=== PATIENT | female | born 1995 | race American Indian/Alaskan Native ===

== ENCOUNTER 2017-04-16 23:18 | Inpatient (IN) | payer MEDICAID ==
[2017-04-17] MEDS ORDERED: Sodium Chloride 0.9% 10 ML Syringe FLUSH PRN ×2 (00:20→08:12)
[2017-04-17] MEDS ORDERED: Ondansetron 4 MG/2 ML SDV IV PRN (00:20)
[2017-04-17] MEDS ORDERED: Penicillin G Potassium 5 MILLUNITS in Sodium Chloride 0.9% 100 ML IV ONE (00:20)
[2017-04-17] MEDS ORDERED: Lidocaine 1% 30 ML SDV INJECT PRN (00:20)
[2017-04-17] MEDS ORDERED: Methylergonovine 0.2 MG/1 ML Amp IM PRN (00:20)
[2017-04-17] MEDS ORDERED: Lactated Ringers 500 ML IV ONE (00:20)
[2017-04-17] MEDS ORDERED: Misoprostol 400 MCG (4 X 100 MCG TAB) RECTAL PRN (00:20)
[2017-04-17] MEDS ORDERED: Carboprost Tromethamine 250 MCG/1 ML Amp IM PRN (00:20)
[2017-04-17] MEDS ORDERED: Oxytocin/Normal Saline 30 UNIT/500 ML BAG IV SCH (00:30)
[2017-04-17] MEDS: Lactated Ringers 1,000 ML IV SCH ×2 (01:00→03:32)
[2017-04-17] MEDS ORDERED: fentaNYL 100 MCG/2 ML SDV ONE (03:23)
--- NOTE | 2017-04-17 03:56 | PCM.SN ---
- Free Text/Narrative Note: Called to provide labor pain relief for this patient via intrathecal. After chart reviewed, consent obtained, and monitors on, proceeded. With patient in sitting position, sterile prep/drape. Skin wheal at L3-4 with 1% Lidocaine, then LPX1 at L3-4 with 25g pencan spinal needle. Positive clear, free flowing CSF, no heme, no paresthesia. Then 20mcg sufenta, 30mcg fentanyl, 6mg mpf HB spinal marcaine, 0.4ml preservative free normal saline, plus epi wash given intrathecally. Maternal SBP and FHT's remained stable after. Block to around T4, and patient reported pain relief from subsequent contractions.
[2017-04-17] MEDS ORDERED: Penicillin G Potassium 3 MILLUNITS in Sodium Chloride 0.9% 100 ML IV SCH (04:00)
[2017-04-17] MEDS: Penicillin G Potassium 3 MILLUNITS in Sodium Chloride 0.9% 100 ML IV SCH ×2 (05:06→11:28)
[2017-04-17] MEDS ORDERED: Simethicone 80 MG Tab.Chew PO PRN (08:12)
[2017-04-17] MEDS ORDERED: Zolpidem 5 MG Tab PO PRN (08:12)
[2017-04-17] MEDS ORDERED: Oxytocin 10 Units/1 ML SDV IM PRN (08:12)
[2017-04-17] MEDS ORDERED: Benzocaine/Menthol 20%-0.5% Spray 56 GM Canister TOP PRN (08:12)
[2017-04-17] MEDS: Ibuprofen 800 MG Tab PO PRN ×2 (09:34→22:30)
[2017-04-17] MEDS: Docusate Sodium 100 MG Cap PO PRN ×2 (09:34→22:30)
[2017-04-17] MEDS: Prenatal Multivitamin with Calcium/Folic Acid/Iron Tab PO SCH (09:35)
[2017-04-17] MEDS: Acetaminophen 325 MG Tab PO PRN (16:15)
[2017-04-18] MEDS: Acetaminophen 325 MG Tab PO PRN (06:38)
[2017-04-18] MEDS: Ibuprofen 800 MG Tab PO PRN (06:39)
--- NOTE | 2017-04-18 07:33 | PCM.POSTAN ---
POST ANESTHESIA ASSESSMENT - MENTAL STATUS Mental Status: Alert - VITAL SIGNS Pulse Rate: 87 SaO2: 100 Resp Rate: 18 Blood Pressure: 110/57 Temperature: 36.2 C - RESPIRATORY Respiratory Status: Respiratory Rate WNL - CARDIOVASCULAR CV Status: Pulse Rate WNL - GASTROINTESTINAL GI Status: No Symptoms - POST OP HYDRATION Hydration Status: Adequate & Stable - OBSERVATIONS Free Text/Narrative:: pt without c/o. No PDPH, no PONV, no paresthesias, no c/o pain. No post anesthesia complications noted.
[2017-04-18 08:49] VITALS: BP 81/41
[2017-04-18] MEDS: Prenatal Multivitamin with Calcium/Folic Acid/Iron Tab PO SCH (08:53)
[2017-04-18] MEDS: Docusate Sodium 100 MG Cap PO PRN (08:53)
--- NOTE | 2017-04-18 09:08 | HP ---
PATIENT IDENTIFICATION: Rosa Mcfadden is a 21-year-old G2, P1-0-0-1 intrauterine at 39 and 4/7 weeks confirmed with 16 and 1/7 week ultrasound, who presents with vaginal leaking and contractions. HISTORY OF PRESENT ILLNESS: The patient states that she had vaginal leaking at approximately 10:15 p.m. on 04/16/2017, date of admission, where she got up and noticed vaginal leaking, described as clear in nature, enough to soak through her shorts and leave a softball sized wet morgan on her shorts. She subsequently changed her pants and then had another episode of leaking about the size of a golf ball described as clear in nature with some minimal continued leaking as she presented to the hospital. Associated with these has been some contractions felt on the right side of her abdomen and lower abdomen, radiating to her back, seeming to increase in frequency and intensity. To put this in context, she is GBS positive as well as had a history of a 5-hour labor stating she came in at 8 and had her baby at 1 with her last delivery. Records were called for and reviewed as below and supplemented by patient's history. ANTEPARTUM LABS: ABO blood type A positive, negative antibody. Rubella immune. RPR nonreactive. Negative hep C, HIV, GC, and chlamydia with negative hepatitis B surface antigen. UDS was negative. Wet prep was negative. GBS was positive on 03/22/2017, with hemoglobin being 10.5 that day. OB HISTORY: 12/29/2013, at 40 and 1/7 weeks, delivered a male, spontaneous vaginal delivery, weighing 3714 g, in [place]. ALLERGIES: None. MEDICATIONS: 1. vitamins. 2. Iron. PAST MEDICAL/PAST SURGICAL HISTORY: Remarkable for wisdom teeth extraction. SOCIAL HISTORY: Former smoker. Stopped when she was positive for and notes marijuana during this time up until her , test was positive. No alcohol or other drug use. She just moved to [place] with her significant other, Franki Gutiérrez, and they are currently living in her mother's home. Franki has a 3-year-old son, who does not usually live with him, and Rosa also has a 3-year-old son named Rigoberto, both are currently employed. They have been together since 2014. They are expecting a girl. FAMILY HISTORY: Mother has thyroid disease. Negative family history of anesthesia, bleeding problems, or defects. REVIEW OF SYSTEMS: Otherwise reviewed and felt to be noncontributory. OBJECTIVE: Vital Signs: Blood pressure was 137/77, heart rate 107, temperature 99.2, respiratory rate is between 12 and 20 and nonlabored. General Appearance: Female, appears her stated age, acting appropriate for age. Breathing through some of her contractions, answering questions appropriately in between. HEENT: Head is atraumatic. EOMs intact. PERRLA. No scleral icterus. No obvious otorrhea or rhinorrhea. Mucous membranes moist. Neck: No obvious tenderness. Lungs: Clear to auscultation bilaterally. No increased work of breathing. Heart: S1, S2. Regular rate rhythm. Abdomen: Gravid, John's indeterminate, nontender, and nondistended. Bowel sounds positive. No other organomegaly, pulsatile masses, or obvious hernias. No rebound, rigidity, or guarding. Monitors applied. Genitourinary: Normal external female genitalia. Normal position and presentation of urethra. Sterile speculum exam done, equivocal pooling. Nitrazine is negative. Ferning is pending. Vaginal exam thereafter reveals her to be 4+ cm, 75% to 85% effaced, 0 station, vertex suspected. Previous vaginal exam by nurse was 3 cm within an hour prior to this. heart tones have been in the 150s range, baseline felt to be reactive and reassuring. Tocometer now reveals contractions every 2 to 4 minutes. Pending is a CBC. ASSESSMENT: 1. Intrauterine at 39 and 4/7 weeks, confirmed with 16 and 1/7 week ultrasound. 2. Active labor with contractions with cervical change. This has been over the last hour and records do reveal that the last time she was checked in the clinic on 04/12/2017, she was 1.5 cm and very high. 3. Vaginal leaking, questionable spontaneous rupture of membranes, but at this point in time as an active labor with history of fast labors and being GBS positive status, the patient will be admitted regardless. We will start penicillin immediately. 4. Group B Streptococcus positive. We will start penicillin immediately. 5. History of fast labors stating the last one was 5 hours. 6. G2, P1-0-0-1. PLAN: The patient will be admitted. We will start penicillin immediately. Follow clinically and closely. Await ferning test. May need further interventions, but most likely we will follow clinically and closely at this point in time. The patient understands and agrees with the above treatment and plan. [facility] /[id number]
--- NOTE | 2017-04-18 09:38 | PN ---
DATE: 04/17/2017 SUBJECTIVE: The patient is comfortable, status post intrathecal. OBJECTIVE: heart tones have been in the 130s to 140s, occasional early decelerations what it appears to be. Tocometer reveals contractions every couple of minutes. Vaginal exam reveals her to be 6+ cm, 100% effaced, 0 to +1 station, vertex suspected. Artificial rupture of membranes done after discussion with the patient yielding copious amounts of clear fluid. ASSESSMENT AND PLAN: Intrauterine at 39 and 5/7 weeks confirmed by 16- /7-week ultrasound, admitted with active labor with contractions with cervical change, initially with vaginal leaking with negative ferning and group B Streptococcus positive status with 2 doses of penicillin now with protracted disorder of dilation, status post intrathecal and just had artificial rupture of membranes. We will continue to follow clinically and closely at this point in time. The patient's questions were answered. She understands and agrees with the above treatment and plan. We will follow clinically and closely. [facility] /[id number]
--- NOTE | 2017-04-18 09:59 | DEL ---
DATE: 04/17/2017 PREOPERATIVE DIAGNOSES: 1. Intrauterine at 39 and 5/7 weeks confirmed with 16 and 1/7 week ultrasound. 2. Active labor with contractions and cervical change upon admit. 3. Vaginal leaking. 4. Group B Streptococcus positive (penicillin given). 5. History of fast labor in the past, approximately 5 hours. 6. Maternal anemia with a hemoglobin of 10.2 upon admission. 7. Protracted disorder dilation status post artificial rupture of membranes and Pitocin augmentation. POSTOPERATIVE DIAGNOSES: 1. Intrauterine at 39 and 5/7 weeks confirmed with 16 and 1/7 week ultrasound-delivered. 2. Active labor with contractions and cervical change upon admit. 3. Vaginal leaking. 4. Group B Streptococcus positive (penicillin given). 5. History of fast labor in the past, approximately 5 hours. 6. Maternal anemia with a hemoglobin of 10.2 upon admission. 7. Protracted disorder dilation status post artificial rupture of membranes and Pitocin augmentation. 8. hemorrhage with an EBL of 500 mL. 9. Uterine atony, requiring Methergine. 10.Nuchal cord x1 reduced bluntly with delivery. PROCEDURE PERFORMED: NST, artificial rupture of membranes, Pitocin augmentation, followed by spontaneous vaginal delivery with nonstress test done on 04/16/2017, and rest of the procedures on 04/17/2017. ANESTHESIA: The patient did receive an intrathecal in the first stage of labor. ESTIMATED BLOOD LOSS: 500 mL. FINDINGS: Female. Apgars and weight pending. Nuchal cord x1 reduced bluntly with delivery. PERSONS PERFORMING PROCEDURE: Aiden White MD. assistant counsel is Fransisco Marcus MS-IV. SUMMARY OF EVENTS: The patient is a 21-year-old G2, P1-0-0-1, intrauterine at 39 and 5/7 weeks on date of delivery and 39 and 4 on date of admission, who presented with active labor. As she was in labor, she was started on penicillin. She had some vaginal leaking, which ruled out for spontaneous rupture of membranes. She was followed closely. Once she was 6 cm, she had a protracted disorder of dilation. Artificial rupture of membranes was done, and this was followed by Pitocin augmentation. She did receive an intrathecal in the first stage of labor. She was subsequently found to be complete, and I was called to the room. Fransisco and I donned sterile gown and gloves. The patient started pushing with contractions. vertex was delivered in an YOLANDA presentation with nuchal cord x1, which was reduced bluntly with delivery followed by anterior and posterior shoulder as well as rest of the infant. Mouth and nares were suctioned. Cord was doubly clamped cut and infant was taken to the warmer for resuscitation. Then, approximately 10 mL cord blood was obtained for labs. Placenta then delivered gentle cord traction with fundal massage within 5 to 10 minutes. Perineum, vagina, and perirectal were then examined, noted to have a small external right-sided labia minora perineal abrasion, nonbleeding and non repaired, less than 2 cm. There was noted to be uterine atony. Massage ensued as well as Pitocin per protocol and Methergine was called for and given. This resolved shortly thereafter. Mother and are currently stable at the time of dictation. [facility] /[id number]
--- NOTE | 2017-04-18 10:47 | OBOUT ---
DATE: 04/16/2017 DATE AND TIME OF NST: Date: 04/16/2017. Time: 2327 hours to 2343 hours. REASON FOR NST: 1. Intrauterine at 39-4/7 weeks confirmed by 16-1/7-week ultrasound. 2. Active labor with contractions with cervical change. 3. Vaginal leaking. 4. GBS positive. 5. History of fast labors. 6. G2, P1-0-0-1. NST INTERPRETATION: During this time period, tone baseline is approximately 145 to 150, and there are at least two 15 x 15 beat per minute accelerations, making this strip reactive. It is also noted to be reassuring. Tocometer reveals potential of 5 contractions during this time period. ASSESSMENT: 1. Ubi-ofuybk-amqa-reactive and reassuring. 2. Tocometer with contractions. PLAN: Please see admit history and physical for further details. [facility] /[id number]
[2017-04-18] MEDS ORDERED: fentaNYL 100 MCG/2 ML SDV ITHECAL ONE (16:36)
--- NOTE | 2017-04-18 22:26 | PCM.DCSUM1 ---
Discharge Summary - Hospital Course Free Text/Narrative:: Rosa is a 21yo G2 now P2 delivering a viable female 84 infant by vaginal delivery by Dr. White on 04-17-17 @ 39w5d augmented by AROM, pitocin augmentation and NST. she presented in early labor with cervical change and complaints of leaking fluid which was nitrazine negative and ruled out for SROM. Her cervix changed and AROM carried out. Pitocin augmentation required. Intrathecal placed. vaginal delivery accomplished. Uterine atony noted with 500cc blood loss responding to massage, pitocin and methergine. See admission H&P, delivery note and notes for further details. due to her GBS + status, she received PCN prophylaxis. Hgb on admit 10.7. PLT WNL. hmb HPI Initial Comments: see above Brief History: see above - Discharge Data Discharge Date: 04/18/17 (DISCHARGE PPD #1) Discharge Disposition: Home, Self-Care 01 Condition: Good - Discharge Diagnosis/Problem(s) (1) Vaginal delivery SNOMED Code(s): 183741461 ICD Code: O80 - ENCOUNTER FOR FULL-TERM UNCOMPLICATED DELIVERY Status: Acute (2) Anemia affecting SNOMED Code(s): 58528518 ICD Code: O99.019 - ANEMIA COMPLICATING , UNSPECIFIED TRIMESTER Status: Acute Priority: Medium (3) Group B streptococcal infection during SNOMED Code(s): 614431575 ICD Code: O98.819 - OTH MATERNAL INFEC/PARASTC DISEASES COMP PREG, UNSP TRI; B95.1 - STREPTOCOCCUS, GROUP B, CAUSING DISEASES CLASSD ELSWHR Status: Acute - Patient Summary/Data Complications: none Labs Pending at D/C: none Hospital Course: normal course - Patient Instructions Diet: Usual Diet as Tolerated Activity: As Tolerated Showering/Bathing: May Shower Notify Provider of: Fever, Increased Pain Other/Special Instructions: follow up check in 6 weeks, and sooner as needed - Discharge Plan Home Medications: Home Meds Ferrous Sulfate 1 tab PO BIDMEALS 04/16/17 [History] Vit with Ca/FA/Iron [ Plus Iron] 1 tab PO DAILY 04/16/17 [ History] Patient Handouts: Depression and Baby Blues, Care After Vaginal Delivery - Discharge Summary/Plan Comment DC Time >30 min.: No Discharge Summary/Plan Comment: routine instructions. - General Info Date of Service: 04/18/17 (DISCHARGE DAY) Admission Dx/Problem (Free Text: labor, term - Review of Systems General: Reports: No Symptoms HEENT: Reports: No Symptoms Pulmonary: Reports: No Symptoms Cardiovascular: Reports: No Symptoms Gastrointestinal: Reports: No Symptoms Genitourinary: Reports: No Symptoms Musculoskeletal: Reports: No Symptoms Skin: Reports: No Symptoms Neurological: Reports: No Symptoms Psychiatric: Reports: No Symptoms - Patient Data Vitals - Most Recent: Last Vital Signs Temp 98.9 F 04/18/17 08:00 Pulse 72 04/18/17 08:00 Resp 16 04/18/17 08:00 BP 81/41 L 04/18/17 08:00 Pulse Ox 100 04/18/17 08:00 Weight - Most Recent: 167 lb Lab Results - Last 24 hrs: Laboratory Results - last 24 hr 04/18/17 Range/Units 06:00 WBC 10.6 H (5.0-10.0) 10^3/uL RBC 2.95 L (4.2-5.4) 10^6/uL Hgb 9.1 L (12.0-16.0) g/dL Hct 28.4 L (37.0-47.0) % MCV 96.3 (80-100) fL MCH 30.8 (27.0-34.0) pg MCHC 32.0 L (33.0-35.0) g/dL Plt Count 245 (150-450) 10^3/uL Med Orders - Current: Current Medications Discontinued Medications Acetaminophen (Tylenol) 650 mg PO Q4H PRN PRN Reason: Pain (Mild 1-3) and fever Last Admin: 04/18/17 06:38 Dose: 650 mg Benzocaine/Menthol (Dermoplast Pain Relief [place]) 0 gm TOP Q4H PRN PRN Reason: Perineal comfort measures Last Admin: 04/17/17 09:33 Dose: 1 applic Carboprost Tromethamine (Hemabate Ds) 250 mcg IM ASDIRECTED PRN PRN Reason: HEMORRHAGE Docusate Sodium (Colace) 100 mg PO BID PRN PRN Reason: Constipation Last Admin: 04/18/17 08:53 Dose: 100 mg Fentanyl (Sublimaze) Confirm Administered Dose 100 mcg .ROUTE .STK-MED ONE Stop: 04/17/17 03:24 Last Admin: 04/17/17 05:13 Dose: Not Given Fentanyl (Sublimaze) 30 mcg ITHECAL .STK-MED ONE Stop: 04/18/17 16:37 Lactated Ringer's (Ringers, Lactated) 500 mls @ 500 mls/hr IV .BOLUS ONE Stop: 04/17/17 01:19 Last Admin: 04/17/17 09:44 Dose: Not Given Lactated Ringer's (Ringers, Lactated) 1,000 mls @ 125 mls/hr IV ASDIRECTED RICHIE Last Admin: 04/17/17 03:32 Dose: 125 mls/hr Penicillin G Potassium 5 (millunits/ Sodium Chloride) 100 mls @ 200 mls/hr IV ONETIME ONE Stop: 04/17/17 00:49 Last Admin: 04/17/17 00:59 Dose: 200 mls/hr Penicillin G Potassium 3 (millunits/ Sodium Chloride) 100 mls @ 200 mls/hr IV Q4H RICHIE Oxytocin/Sodium Chloride (Pitocin In Ns 30 Unit/500 Ml) 30 unit in 500 mls @ 500 mls/hr IV TITRATE RICHIE; 500 MUNITS/MIN PRN Reason: Protocol Last Titration: 04/17/17 11:05 Dose: Infused Penicillin G Potassium 3 (millunits/ Sodium Chloride) 100 mls @ 200 mls/hr IV Q4H RICHIE Last Admin: 04/17/17 11:28 Dose: Not Given Ibuprofen (Motrin) 800 mg PO Q8H PRN PRN Reason: Mild Pain or Fever Last Admin: 04/18/17 06:39 Dose: 800 mg Lidocaine HCl (Xylocaine-Mpf 1%) 10 ml INJECT ASDIRECTED PRN PRN Reason: Perineal Repair Methylergonovine Maleate (Methergine) 0.2 mg IM ASDIRECTED PRN PRN Reason: Hemorrhage Last Admin: 04/17/17 08:31 Dose: 0.2 mg Misoprostol (Cytotec) 800 mcg RECTAL ASDIRECTED PRN PRN Reason: Hemorrhage Ondansetron HCl (Zofran) 4 mg IV Q4H PRN PRN Reason: Nausea/Vomiting Last Admin: 04/17/17 03:10 Dose: 4 mg Oxytocin (Pitocin) 10 unit IM ONETIME PRN PRN Reason: Bleeding Prenat Multivit/[place]/Iron/Folic Ac ( Plus Iron) 1 each PO DAILY RICHIE Last Admin: 04/18/17 08:53 Dose: 1 each Simethicone (Simethicone) 80 mg PO Q4H PRN PRN Reason: Gas Sodium Chloride (Saline Flush) 10 ml FLUSH ASDIRECTED PRN PRN Reason: Keep Vein Open Sodium Chloride (Saline Flush) 10 ml FLUSH ASDIRECTED PRN PRN Reason: Keep Vein Open Sufentanil Citrate (Sufenta) Confirm Administered Dose 50 mcg .ROUTE .STK-MED ONE Stop: 04/17/17 03:25 Last Admin: 04/17/17 05:13 Dose: Not Given Sufentanil Citrate (Sufenta) 20 mcg ITHECAL .STK-MED ONE Stop: 04/18/17 16:37 Zolpidem Tartrate (Ambien) 5 mg PO BEDTIME PRN PRN Reason: Insomnia - Exam General: Reports: Alert, Oriented HEENT: Reports: Pupils Equal, Pupils Reactive, EOMI, Mucous Membr. Moist/[place] Neck: Reports: Supple Lungs: Reports: Clear to Auscultation, Normal Respiratory Effort Cardiovascular: Reports: Regular Rate, Regular Rhythm GI/Abdominal Exam: Normal Bowel Sounds, Soft, Non-Tender, No Organomegaly, No Distention, No Abnormal Bruit, No Mass, Pelvis Stable (Female) Exam: Normal External Exam, Normal Speculum Exam, Normal Bimanual Exam Rectal (Female) Exam: Normal Exam, Normal Rectal Tone Back Exam: Reports: Normal Inspection, Full Range of Motion Extremities: Normal Inspection, Normal Range of Motion, Non-Tender, No Pedal Edema, Normal Capillary Refill Skin: Reports: Warm, Dry, Intact Wound/Incisions: Reports: Healing Well Neurological: Reports: No New Focal Deficit Psy/Mental Status: Reports: Alert, Normal Affect, Normal Mood Discharge Operative/Procedures - Procedures Performed LP Indication: CSF analysis Arterial Line Indication: hemodynamic monitoring Chest Tube Indication: pneumothorax Thoracentesis Indication: pleural effusion Paracentesis Indication: ascites Operations/Procedure Comment: vaginal delivery--see Dr. White's delivery note and my HPI/brief hx note. hmb *Q Meaningful Use (DIS) - VTE *Q VTE Criteria *Q: - Stroke *Q Stroke Criteria *Q: - AMI *Q AMI Criteria *Q:
== END 2017-04-18 13:35 | disposition home or self-care (01) | DRG 774 ==
LOC: DL.OBCHECK 23:18 → DL.OB 04-17 00:10 → OBSVTOIN 04-17 08:00
PROVIDERS: ADMIT Family Medicine; ATTEND Family Medicine
PROC: 10E0XZZ Delivery of Products of Conception, External Approach (ICD-10-PCS; principal; 2017-04-17)
PROC: 4A1HXFZ Monitoring of Products of Conception, Cardiac Rhythm, External Approach (ICD-10-PCS; 2017-04-17)
PROC: 10907ZC Drainage of Amniotic Fluid, Therapeutic from Products of Conception, Via Natural or Artificial Opening (ICD-10-PCS; 2017-04-17)
PROC: 00HU33Z Insertion of Infusion Device into Spinal Canal, Percutaneous Approach (ICD-10-PCS; 2017-04-17)
PROC: 3E0R3CZ (ICD-10-PCS; 2017-04-17)
DX: O42.02 Full-term premature rupture of membranes, onset of labor within 24 hours of rupture (principal); O72.1 Other immediate postpartum hemorrhage; Z3A.40 40 weeks gestation of pregnancy; Z37.0 Single live birth; O99.824 Streptococcus B carrier state complicating childbirth; O69.81X0 Labor and delivery complicated by cord around neck, without compression, not applicable or unspecified; Z87.891 Personal history of nicotine dependence
CPT/HCPCS: 01967; 36415; 82274; 85027; A9270-GY; J2210; J2405; J2540; J2590; J3010; J7050; J7120

== ENCOUNTER 2017-09-11 21:05 | Emergency (ER) | payer MEDICAID ==
[2017-09-11 21:23] VITALS: BP 139/82
[2017-09-11] MEDS ORDERED: Cephalexin 500 MG Cap PO ONE (23:13)
[2017-09-11] MEDS ORDERED: Ibuprofen 800 MG Tab PO ONE (23:14)
--- NOTE | 2017-09-11 23:19 | EDM.PDOC ---
ED HPI GENERAL MEDICAL PROBLEM - General Chief Complaint: ENT Problem Stated Complaint: TOOTHACHE Time Seen by Provider: 09/11/17 23:00 Source of Information: Reports: Patient History Limitations: Reports: No Limitations - History of Present Illness INITIAL COMMENTS - FREE TEXT/NARRATIVE: left lower dental pain to back molar for past 3 weeks, worse tonight after eating supper. Tylenol not helping. No fever. Left Lower Gums Pain Score (Numeric/FACES): 7 - Related Data Allergies Allergy/AdvReac Type Severity Reaction Status Date / Time No Known Allergies Allergy Verified 09/11/17 21:23 Home Meds: Home Meds . 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: Hematologic History: Reports: Anemia Social & Family History - Family History Family Medical History: Noncontributory - Tobacco Use Smoking Status *Q: Current Every Day Smoker Years of Tobacco use: 4 Packs/Tins Daily: 0.3 Used Tobacco, but Quit: Yes Month Tobacco Last Used: 2014 Second Hand Smoke Exposure: Yes - Caffeine Use Caffeine Use: Reports: None - Recreational Drug Use Recreational Drug Use: No ED ROS ENT - Review of Systems Review Of Systems: See Below ED EXAM, ENT - Physical Exam Exam: See Below Exam Limited By: No Limitations General Appearance: Alert, Mild Distress Eye Exam: Bilateral Eye: EOMI Ears: Normal External Exam, Normal TMs Nose: Normal Inspection Mouth/Throat: Dental Pain, Other (poor dentation. Large area recay 2nd and 3rd lower molars on left.) Head: Atraumatic, Normocephalic Neck: Normal Inspection. No: Lymphadenopathy (L), Lymphadenopathy (R) Respiratory/Chest: No Respiratory Distress Cardiovascular: Normal Peripheral Pulses, Regular Rate, Rhythm GI/Abdominal: Normal Bowel Sounds, Soft Extremities: Normal Inspection Neurological: Alert, Oriented, Normal Cognition Psychiatric: Normal Affect Skin: Warm, Dry, Intact, Normal Color Course - Vital Signs Last Recorded V/S: Last Vital Signs Temp 97.9 F 09/11/17 21:19 Pulse 107 H 09/11/17 21:19 Resp 18 09/11/17 21:19 BP 139/82 09/11/17 21:19 Pulse Ox 100 09/11/17 21:19 - Orders/Labs/Meds Meds: Medications Discontinued Medications Generic Name Dose Route Start Last Admin Trade Name Francisco PRN Reason Stop Dose Admin Cephalexin 500 mg 09/11/17 23:13 09/11/17 23:20 Keflex PO 09/11/17 23:14 500 mg ONETIME ONE Administration Ibuprofen 800 mg 09/11/17 23:14 09/11/17 23:19 Motrin PO 09/11/17 23:15 800 mg ONETIME ONE Administration Departure - Departure Time of Disposition: 23:14 Disposition: Home, Self-Care 01 Condition: Good Clinical Impression: Dental caries extending into dentin, Dental abscess - Discharge Information Instructions: Dental Abscess Referrals: Jahaira Camilo MD [Primary Care Provider] - Forms: ED Department Discharge Additional Instructions: alternate tylenol and ibuprofen. Ibuprofen dose may be increased to 800mg up to 3 times daily keflex 500mg one 3 times daily for one week follow up with dentist anbesol as needed room temperature liquids chew on opposite side
== END 2017-09-11 23:22 | disposition home or self-care (01) ==
LOC: DL.ED 21:05
DX: K04.7 Periapical abscess without sinus (principal); K02.9 Dental caries, unspecified; F17.210 Nicotine dependence, cigarettes, uncomplicated
CPT/HCPCS: 99282; A9270